=== PATIENT | female | born 1990 | race American Indian/Alaskan Native ===

== ENCOUNTER 2017-04-05 09:06 | Emergency (ER) | payer SELFPAY | END 2017-04-05 09:07 | disposition left against medical advice (07) | LOC: ED 09:06 | DX: M54.9 Dorsalgia, unspecified (principal); Z53.21 Procedure and treatment not carried out due to patient leaving prior to being seen by health care provider; V89.2XXA Person injured in unspecified motor-vehicle accident, traffic, initial encounter; Y93.89 Activity, other specified; Y99.8 Other external cause status; Y92.488 Other paved roadways as the place of occurrence of the external cause ==

== ENCOUNTER 2017-07-12 22:56 | Emergency (ER) | payer SELFPAY ==
[2017-07-13 00:06] VITALS: BP 115/70
[2017-07-13] MEDS ORDERED: DUONEB *Not for PRN Use IH ONE ×2 (00:12→00:13)
[2017-07-13 00:26] LABS: Hematocrit 39.8 % (30.3-42.9); Hemoglobin 12.9 gm/dl (10.1-14.3); Mean Corpuscular HGB Conc 32 % (30-34); Mean Corpuscular Hemoglobin 30 pg (28-32); Mean Corpuscular Volume 92 fl (79-97); Platelet Count 219 K/mm3 (140-440); Red Blood Count 4.32 M/mm3 (3.65-5.03); Red Cell Distribution Width 13.5 % (13.2-15.2)
[2017-07-13 00:40] LABS: Bilirubin,Urine NEG (Negative); Blood,Urine MOD (Negative); Color,Urine Straw (Yellow); Protein,Urine <15 mg/dL mg/dL (Negative); RBC,Urine < 1.0 /HPF (0.0-6.0); Urobilinogen,Urine < 2.0 mg/dL (<2.0)
[2017-07-13 00:44] LABS: BUN/Creatinine Ratio 10; Blood Urea Nitrogen 10 mg/dL (7-17); Calcium 8.4 mg/dL (8.4-10.2); Hemolysis Index 3
[2017-07-13] MEDS ORDERED: ZOFRAN ODT ONE (01:12)
[2017-07-13] MEDS ORDERED: ZOFRAN ODT PO ONE ×2 (01:16→05:44)
[2017-07-13] MEDS ORDERED: DELTASONE PO ONE (05:44)
--- NOTE | 2017-07-13 05:45 | Emergency Department Report ---
HPI - General Chief Complaint: Adult Asthma Time Seen by Provider: 07/13/17 05:39 - HPI HPI: Patient here reports that her asthma is acting up. She says she hasn't had an asthma flare for few years and she does have a inhaler. She says she's been having and sneezing and nasal congestion and coughing for over a week and now she is having wheezing for the last 2-3 days and feeling like something is caught in her throat. Denies any chest pain or shortness of breath. She says she is feeling a little nauseated. Patient says she thinks she might be could've the last time she saw her period was 05/08/2017 and she feels some pelvic pressure on and off. Denies any urinary burning frequency or urgency. Denies any vaginal discharge or bleeding. No previous intubation for asthma. She is also requesting a check. Denies any sore throat or drooling. Denies any headache. She is not having any pain at present but says when she was having pelvic pressure last week it was like to. She says she's been taking in medication such as Claritin, DayQuil Tylenol and Vicks. She said medications not helping. Patient denies any vomiting or any fever or chills. She denies any diarrhea. ED Past Medical Hx - Past Medical History Previous Medical History?: Yes Hx Asthma: Yes - Surgical History Past Surgical History?: Yes Additional Surgical History: Csection - Family History Family history: no significant - Social History Smoking Status: Never Smoker Substance Use Type: None - Medications Home Medications: Home Medications Medication Instructions Recorded Confirmed Last Taken Type ALBUTEROL Inhaler [ProAir HFA 2 puff IH Q4-6H PRN #1 inhalation 07/13/17 Unknown Rx Inhaler] Cetirizine HCl [ZyrTEC] 10 mg PO QAM 14 Days #14 capsule 07/13/17 Unknown Rx Fluticasone [Flonase] 1 spray NS QDAY 14 Days #1 bottle 07/13/17 Unknown Rx Ondansetron [Zofran Odt] 4 mg PO Q8H PRN #12 tab.rapdis 07/13/17 Unknown Rx Sulfamethoxazole/Trimethoprim 1 each PO Q12H 7 Days #14 tablet 07/13/17 Unknown Rx [Bactrim DS TAB] predniSONE [Deltasone] 50 mg PO QAM 5 Days #5 tablet 07/13/17 Unknown Rx ED Review of Systems ROS: Stated complaint: ASTHMA Other details as noted in HPI Comment: All other systems reviewed and negative Constitutional: no symptoms reported Eyes: denies: eye discharge ENT: congestion. denies: ear pain, throat pain, dental pain, epistaxis Respiratory: cough, wheezing. denies: orthopnea, shortness of breath, SOB with exertion, SOB at rest, stridor Cardiovascular: denies: chest pain, palpitations, dyspnea on exertion, orthopnea , edema, syncope, paroxysmal nocturnal dyspnea Gastrointestinal: nausea, other (pelvic pressure on and off). denies: abdominal pain, vomiting, diarrhea, constipation, hematemesis, melena, hematochezia Genitourinary: abnormal menses. denies: urgency, dysuria, frequency, hematuria , discharge, dyspareunia Musculoskeletal: denies: back pain, joint swelling, arthralgia, myalgia Skin: denies: rash Neurological: denies: headache, numbness, paresthesias, confusion Physical Exam - Physical Exam Vital Signs: Vital Signs 07/12/17 23:55 Temperature 98.6 F Pulse Rate 98 H Respiratory 20 Rate Blood Pressure 115/70 O2 Sat by Pulse 98 Oximetry General: This is a 27-year-old female well-nourished well-developed in no acute distress. Physical Exam: Head: Normocephalic, atraumatic, no abrasion, no bruising and no contusion. Eyes: Biateral pupils equal and reactive to light, bilateral EOM intact.. Bilateral conjunctival and sclera without injection, normal accommodation. No nystagmus Mouth: Mucosa moist, no pharyngeal exudate or erythema. No peritonsillar abscesses. Uvula is midline and oral airways patent. Ears: Bilateral TMs ingested without erythema .Bilateral EAC without any redness swelling or drainage. No mastoid bone tenderness Nose: Bilateral nasal mucosa, erythema, congested with their drainage,Maxillary and frontal sinuses non-tender to palpate. Neck: Supple, No Cervical adenopathy, full range of motion and no C-spine tenderness. No swelling or tracheal deviation normal reflexes Cardiovascular: S1, S2. Regular rate and rhythm. No murmur. Capillary refill is less then 3 seconds. Lungs: Scattered wheezes to upper lung cohen No rhonchi or rales. No chest wall tenderness. Normal work of breathing. No chest contusion. No bruising to chest. Abdomen: Non-tender to palpate in all quadrants, no guarding or rebound tenderness, positive bowel sounds in all quadrants. No CVA tenderness. No hernia, bruit or mass. No rigidity or distention. Extremities: No clubbing, cyanosis or edema. +2 pulses. No neurovascular compromise Skin: Clean, dry and intact. No rash or lesions. Psych: Normal mood and behavior ED Course Vital Signs 07/12/17 23:55 Temperature 98.6 F Pulse Rate 98 H Respiratory 20 Rate Blood Pressure 115/70 O2 Sat by Pulse 98 Oximetry - Reevaluation(s) Reevaluation #1: 07/13/17 06:07 Patient given DuoNeb 1 nebulizer treatment in emergency room. She was given Deltasone 60 mg by mouth for asthma exacerbation. Upon reevaluation her lung sounds are clear. Patient given Zofran DT 8 mg and 4 mg increments for nausea. She is able to tolerate oral liquids in the emergency room without any vomiting. She says she still feels congested in her nose but her lungs feel better. ED Medical Decision Making - Lab Data Result diagrams: 07/13/17 00:15 07/13/17 00:15 Lab Results 07/13/17 07/13/17 07/13/17 Range/Units 00:06 00:15 00:15 WBC 7.9 (4.5-11.0) K/mm3 RBC 4.32 (3.65-5.03) M/mm3 Hgb 12.9 (10.1-14.3) gm/dl Hct 39.8 (30.3-42.9) % MCV 92 (79-97) fl MCH 30 (28-32) pg MCHC 32 (30-34) % RDW 13.5 (13.2-15.2) % Plt Count 219 (140-440) K/mm3 Sodium 140 (137-145) mmol/L Potassium 4.1 (3.6-5.0) mmol/L Chloride 102.2 (98-107) mmol/L Carbon Dioxide 29 (22-30) mmol/L Anion Gap 13 mmol/L BUN 10 (7-17) mg/dL Creatinine 1.0 (0.7-1.2) mg/dL Estimated GFR > 60 ml/min BUN/Creatinine Ratio 10 % Glucose 109 H (65-100) mg/dL Calcium 8.4 (8.4-10.2) mg/dL HCG, Qual (Negative) Urine Color Straw (Yellow) Urine Turbidity Clear (Clear) Urine pH 6.0 (5.0-7.0) Ur Specific [place] 1.005 (1.003-1.030) Urine Protein <15 mg/dl (Negative) mg/dL Urine Glucose (UA) Neg (Negative) mg/dL Urine Ketones Neg (Negative) mg/dL Urine Blood Mod (Negative) Urine Nitrite Neg (Negative) Urine Bilirubin Neg (Negative) Urine Urobilinogen < 2.0 (<2.0) mg/dL Ur Leukocyte Esterase Tr (Negative) Urine WBC (Auto) 2.0 (0.0-6.0) /HPF Urine RBC (Auto) < 1.0 (0.0-6.0) /HPF U Epithel Cells (Auto) < 1.0 (0-13.0) /HPF 07/13/17 Range/Units 00:15 WBC (4.5-11.0) K/mm3 RBC (3.65-5.03) M/mm3 Hgb (10.1-14.3) gm/dl Hct (30.3-42.9) % MCV (79-97) fl MCH (28-32) pg MCHC (30-34) % RDW (13.2-15.2) % Plt Count (140-440) K/mm3 Sodium (137-145) mmol/L Potassium (3.6-5.0) mmol/L Chloride (98-107) mmol/L Carbon Dioxide (22-30) mmol/L Anion Gap mmol/L BUN (7-17) mg/dL Creatinine (0.7-1.2) mg/dL Estimated GFR ml/min BUN/Creatinine Ratio % Glucose (65-100) mg/dL Calcium (8.4-10.2) mg/dL HCG, Qual Negative (Negative) Urine Color (Yellow) Urine Turbidity (Clear) Urine pH (5.0-7.0) Ur Specific [place] (1.003-1.030) Urine Protein (Negative) mg/dL Urine Glucose (UA) (Negative) mg/dL Urine Ketones (Negative) mg/dL Urine Blood (Negative) Urine Nitrite (Negative) Urine Bilirubin (Negative) Urine Urobilinogen (<2.0) mg/dL Ur Leukocyte Esterase (Negative) Urine WBC (Auto) (0.0-6.0) /HPF Urine RBC (Auto) (0.0-6.0) /HPF U Epithel Cells (Auto) (0-13.0) /HPF Urine culture pending - Medical Decision Making Patient here reports that she is having an asthma flareup, nasal congestion and runny nose preceded this. She is also having episodic pelvic pressure that she is not having now. No urinary symptoms. She is requesting a test because she feels like she is because she is having nausea with pelvic pressure and missed her period 2 months. Patient found to have mild asthma exacerbation, intermittent, upper respiratory tract infection with cough and congestion. Lab to include CT reveals negative , CBC is stable, chemistry stable. Patient urinalysis with trace leukocyte esterase and moderate blood but all other values are normal. I discussed the patient diagnosis and treatment plan. She voiced understanding. Patient was treated in emergency room with DuoNeb 1 nebulizer treatment and Deltasone 60 mg by mouth for asthma. She says she felt better. She was given Zofran 8 mg ODT total for nausea which helped her nausea and she is able to tolerate liquids in emergency room. Patient with questionable urinary tract infection with trace leukocyte esterase and moderate amount of blood in urine but no urinary burning , urgency or frequency. I will put patient on antibiotic to treat upper respiratory infection with cough and congestion and asthma and this should cover if she has urinary tract infection. Patient discharged home in stable condition with prescription for Zofran, Bactrim DS, prednisone, Zyrtec, Flonase and albuterol. Patient to follow-up at [facility] in 2-3 days Critical care attestation.: If time is entered above; I have spent that time in minutes in the direct care of this critically ill patient, excluding procedure time. ED Disposition Clinical Impression: URI with cough and congestion, Nausea alone, Abnormal menstrual cycle Asthma exacerbation attacks Qualifiers: Asthma severity: mild Asthma persistence: intermittent Qualified Code(s): J45.21 - Mild intermittent asthma with (acute) exacerbation Disposition: TO HOME OR SELFCARE Is pt being admited?: No Does the pt Need Aspirin: No Condition: Stable Instructions: Asthma (ED), Upper Respiratory Infection (ED), Acute Cough (ED), Acute Nausea and Vomiting (ED) Additional Instructions: Please follow up with [facility] for primary care visit and also [facility] [facility] visit. Call today to schedule an appointment for management of your chronic asthma and also they have [facility] which will evaluate U for abnormal menses He states Zyrtec and Flonase for congestion Albuterol for cough and wheezing Take Bactrim DS for upper respiratory infection lasted more than 1 week. Increase your fluid intake Flushes sinuses out with saline nasal wash Prescriptions: ALBUTEROL Inhaler [ProAir HFA Inhaler] 2 puff IH Q4-6H PRN #1 inhalation PRN Reason: cough and wheeze Cetirizine HCl [ZyrTEC] 10 mg PO QAM 14 Days #14 capsule Fluticasone [Flonase] 1 spray NS QDAY 14 Days #1 bottle Ondansetron [Zofran Odt] 4 mg PO Q8H PRN #12 tab.rapdis PRN Reason: Nausea And Vomiting predniSONE [Deltasone] 50 mg PO QAM 5 Days #5 tablet Sulfamethoxazole/Trimethoprim [Bactrim DS TAB] 1 each PO Q12H 7 Days #14 tablet Referrals: [facility] [Outside] - 2-3 Days Forms: Work/School Release Form(ED)
== END 2017-07-13 06:32 | disposition home or self-care (01) ==
LOC: ED 22:56
DX: J45.21 Mild intermittent asthma with (acute) exacerbation (principal); J06.9 Acute upper respiratory infection, unspecified; N92.6 Irregular menstruation, unspecified
CPT/HCPCS: 36415; 80048; 81001; 84703; 85027; 87086; 99283; J7512; Q0162

== ENCOUNTER 2017-12-24 17:09 | Emergency (ER) | payer OTHER ==
[2017-12-24 17:33] VITALS: BP 118/54
[2017-12-24] MEDS ORDERED: MOTRIN PO ONE (18:34)
[2017-12-24] MEDS ORDERED: NORCO 5/325 PO ONE (18:34)
[2017-12-24] MEDS ORDERED: ZOFRAN ODT PO ONE (18:34)
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
== END 2017-12-24 18:53 | disposition home or self-care (01) ==
LOC: ED 17:09
DX: M25.562 Pain in left knee (principal); M25.512 Pain in left shoulder; M25.572 Pain in left ankle and joints of left foot; J45.909 Unspecified asthma, uncomplicated; F17.200 Nicotine dependence, unspecified, uncomplicated; Z88.0 Allergy status to penicillin; V49.49XA Driver injured in collision with other motor vehicles in traffic accident, initial encounter; Y93.89 Activity, other specified; Y92.488 Other paved roadways as the place of occurrence of the external cause; Y99.8 Other external cause status
CPT/HCPCS: 99282; Q0162

== ENCOUNTER 2018-09-03 07:38 | Emergency (ER) | payer MEDICAID, OTHER ==
[2018-09-03 07:47] VITALS: BP 120/63
[2018-09-03 08:30] LABS: Basophils % (Auto) 0.6 % (0.0-1.8); Eosinophils # (Auto) 0.1 K/mm3 (0.0-0.4); Eosinophils % (Auto) 1.3 % (0.0-4.3); Hematocrit 38.1 % (30.3-42.9); Hemoglobin 12.6 gm/dl (10.1-14.3); Lymphocytes # (Auto) 2.6 K/mm3 (1.2-5.4); Lymphocytes % (Auto) 34.9 % (13.4-35.0); Mean Corpuscular HGB Conc 33 % (30-34); Mean Corpuscular Volume 91 fl (79-97); Monocytes # (Auto) 0.6 K/mm3 (0.0-0.8); Monocytes % (Auto) 7.9 % (0.0-7.3); Platelet Count 235 K/mm3 (140-440); Red Blood Count 4.17 M/mm3 (3.65-5.03); Red Cell Distribution Width 13.6 % (13.2-15.2)
--- NOTE | 2018-09-03 08:34 | Emergency Department Report ---
ED Female HPI - General Chief complaint: Abdominal Pain Stated complaint: /ABD PAIN Source: patient Mode of arrival: Ambulatory Limitations: No Limitations - History of Present Illness Initial comments: This is a 28-year-old female who presents to the emergency room with diffuse abdominal cramping for a couple days. Patient states she took a home test and forth which was positive. Last menstrual period was 07/09/2018, A0. She also reports nausea without vomiting. Denies vaginal bleeding, vaginal discharge, urinary frequency, urgency, or dysuria. MD Complaint: pelvic pain Onset/Timin -: days(s) Location: suprapubic Radiation: non-radiating Severity: mild Severity scale (0 -10): 3 Quality: cramping Consistency: intermittent Improves with: none Worsens with: none Are you Now?: Yes Last Menstrual Period: 07/09/18 EDC: 04/15/19 Associated Symptoms: abdominal pain, nausea/vomiting. denies: vaginal discharge, vaginal bleeding, fever/chills, headaches, loss of appetite, dysuria, hematuria, rash, seizure, shortness of breath, syncope, weakness - Related Data Sexually active: Yes : 4 Para: 3 A: 0 Previous Rx's Medication Instructions Recorded Last Taken Type ALBUTEROL Inhaler (OR & NICU) 2 puff IH Q4-6H PRN #1 inhalation 07/13/17 Unknown Rx [ProAir HFA Inhaler] Cetirizine HCl [ZyrTEC] 10 mg PO QAM 14 Days #14 capsule 07/13/17 Unknown Rx Fluticasone [Flonase] 1 spray NS QDAY 14 Days #1 bottle 07/13/17 Unknown Rx Ondansetron [Zofran Odt] 4 mg PO Q8H PRN #12 tab.rapdis 07/13/17 Unknown Rx Sulfamethoxazole/Trimethoprim 1 each PO Q12H 7 Days #14 tablet 07/13/17 Unknown Rx [Bactrim DS TAB] predniSONE [Deltasone] 50 mg PO QAM 5 Days #5 tablet 07/13/17 Unknown Rx Cyclobenzaprine [Flexeril] 10 mg PO TID PRN #20 tablet 12/24/17 Unknown Rx Ibuprofen [Ibuprofen 800] 800 mg PO Q6H PRN #20 tablet 12/24/17 Unknown Rx 21/Iron Fu/Folic Acid 1 each PO DAILY #30 tablet 09/03/18 Unknown Rx [ Complete Caplet] Allergies Allergy/AdvReac Type Severity Reaction Status Date / Time Penicillins Allergy Anaphylaxis Verified 12/24/17 17:33 ED Review of Systems ROS: Stated complaint: /ABD PAIN Other details as noted in HPI Constitutional: denies: chills, fever Respiratory: denies: cough, shortness of breath, wheezing Cardiovascular: denies: chest pain, palpitations Gastrointestinal: abdominal pain, nausea. denies: vomiting, diarrhea Genitourinary: denies: urgency, dysuria, discharge Musculoskeletal: denies: back pain, joint swelling, arthralgia Skin: denies: rash, lesions Neurological: denies: headache, weakness, paresthesias Psychiatric: denies: anxiety, depression ED Past Medical Hx - Past Medical History Previous Medical History?: Yes Hx Asthma: Yes - Surgical History Past Surgical History?: Yes Additional Surgical History: Csection - Social History Smoking Status: Former Smoker Substance Use Type: Alcohol - Medications Home Medications: Home Medications Medication Instructions Recorded Confirmed Last Taken Type ALBUTEROL Inhaler (OR & NICU) 2 puff IH Q4-6H PRN #1 inhalation 07/13/17 Unknown Rx [ProAir HFA Inhaler] Cetirizine HCl [ZyrTEC] 10 mg PO QAM 14 Days #14 capsule 07/13/17 Unknown Rx Fluticasone [Flonase] 1 spray NS QDAY 14 Days #1 bottle 07/13/17 Unknown Rx Ondansetron [Zofran Odt] 4 mg PO Q8H PRN #12 tab.rapdis 07/13/17 Unknown Rx Sulfamethoxazole/Trimethoprim 1 each PO Q12H 7 Days #14 tablet 07/13/17 Unknown Rx [Bactrim DS TAB] predniSONE [Deltasone] 50 mg PO QAM 5 Days #5 tablet 07/13/17 Unknown Rx Cyclobenzaprine [Flexeril] 10 mg PO TID PRN #20 tablet 12/24/17 Unknown Rx Ibuprofen [Ibuprofen 800] 800 mg PO Q6H PRN #20 tablet 12/24/17 Unknown Rx 21/Iron Fu/Folic Acid 1 each PO DAILY #30 tablet 09/03/18 Unknown Rx [ Complete Caplet] ED Physical Exam - General Limitations: No Limitations General appearance: alert, in no apparent distress, obese (morbidly obese) - Respiratory Respiratory exam: Present: normal lung sounds bilaterally. Absent: respiratory distress - Cardiovascular Cardiovascular Exam: Present: regular rate, normal rhythm. Absent: systolic murmur, diastolic murmur, rubs, gallop - GI/Abdominal GI/Abdominal exam: Present: soft, normal bowel sounds. Absent: distended, tenderness, guarding, rebound, rigid - Back Exam Back exam: Absent: CVA tenderness (R), CVA tenderness (L) - Neurological Exam Neurological exam: Present: alert, oriented X3, normal gait - Psychiatric Psychiatric exam: Present: normal affect, normal mood - Skin Skin exam: Present: warm, dry, intact, normal color. Absent: rash ED Course Vital Signs 09/03/18 07:43 Temperature 98.6 F Pulse Rate 82 Respiratory 18 Rate Blood Pressure 120/63 O2 Sat by Pulse 100 Oximetry ED Medical Decision Making - Lab Data Result diagrams: 09/03/18 07:59 Lab Results 09/03/18 09/03/18 09/03/18 Range/Units 07:56 07:59 07:59 WBC 7.3 (4.5-11.0) K/mm3 RBC 4.17 (3.65-5.03) M/mm3 Hgb 12.6 (10.1-14.3) gm/dl Hct 38.1 (30.3-42.9) % MCV 91 (79-97) fl MCH 30 (28-32) pg MCHC 33 (30-34) % RDW 13.6 (13.2-15.2) % Plt Count 235 (140-440) K/mm3 Lymph % (Auto) 34.9 (13.4-35.0) % [place] % (Auto) 7.9 H (0.0-7.3) % Eos % (Auto) 1.3 (0.0-4.3) % Baso % (Auto) 0.6 (0.0-1.8) % Lymph # 2.6 (1.2-5.4) K/mm3 [place] # 0.6 (0.0-0.8) K/mm3 Eos # 0.1 (0.0-0.4) K/mm3 Baso # 0.0 (0.0-0.1) K/mm3 Seg Neutrophils % 55.3 (40.0-70.0) % Seg Neutrophils # 4.1 (1.8-7.7) K/mm3 HCG, Quant 58047 H (0-4) mIU/mL Urine Color Yellow (Yellow) Urine Turbidity Clear (Clear) Urine pH 7.0 (5.0-7.0) Ur Specific [place] 1.010 (1.003-1.030) Urine Protein <15 mg/dl (Negative) mg/dL Urine Glucose (UA) Neg (Negative) mg/dL Urine Ketones Neg (Negative) mg/dL Urine Blood Neg (Negative) Urine Nitrite Neg (Negative) Urine Bilirubin Neg (Negative) Urine Urobilinogen < 2.0 (<2.0) mg/dL Ur Leukocyte Esterase Sm (Negative) Urine WBC (Auto) 3.0 (0.0-6.0) /HPF Urine RBC (Auto) < 1.0 (0.0-6.0) /HPF U Epithel Cells (Auto) 2.0 (0-13.0) /HPF Urine Mucus Few /HPF Blood Type 09/03/18 Range/Units 07:59 WBC (4.5-11.0) K/mm3 RBC (3.65-5.03) M/mm3 Hgb (10.1-14.3) gm/dl Hct (30.3-42.9) % MCV (79-97) fl MCH (28-32) pg MCHC (30-34) % RDW (13.2-15.2) % Plt Count (140-440) K/mm3 Lymph % (Auto) (13.4-35.0) % [place] % (Auto) (0.0-7.3) % Eos % (Auto) (0.0-4.3) % Baso % (Auto) (0.0-1.8) % Lymph # (1.2-5.4) K/mm3 [place] # (0.0-0.8) K/mm3 Eos # (0.0-0.4) K/mm3 Baso # (0.0-0.1) K/mm3 Seg Neutrophils % (40.0-70.0) % Seg Neutrophils # (1.8-7.7) K/mm3 HCG, Quant (0-4) mIU/mL Urine Color (Yellow) Urine Turbidity (Clear) Urine pH (5.0-7.0) Ur Specific [place] (1.003-1.030) Urine Protein (Negative) mg/dL Urine Glucose (UA) (Negative) mg/dL Urine Ketones (Negative) mg/dL Urine Blood (Negative) Urine Nitrite (Negative) Urine Bilirubin (Negative) Urine Urobilinogen (<2.0) mg/dL Ur Leukocyte Esterase (Negative) Urine WBC (Auto) (0.0-6.0) /HPF Urine RBC (Auto) (0.0-6.0) /HPF U Epithel Cells (Auto) (0-13.0) /HPF Urine Mucus /HPF Blood Type B POSITIVE - Radiology Data Radiology results: report reviewed PROCEDURE: US OB TRANSVAGINAL TECHNIQUE: Transvaginal OB ultrasound. HISTORY: positive , unknown gestation COMPARISONS: None currently available. FINDINGS: Single intrauterine dates 6.2 weeks by crown rump length and mean sac diameter. CARY equals April 27, 2019. This is 12 days younger compared to the prior ultrasound and is discordant. Gestational sac, yolk sac, and pole identified. Intact diameter measures 18.5 mm. [place]-rump length measures 2.6 mm. No heart tones identified at the spine. Uterus: 12.2 x 7.1 x 6.7 cm. Cyst structure within the endometrial canal may represent a gestational sac. Right ovary: 4.8 x 1.8 x 3.5 cm. Within normal limits. Left Ovary: 4.0 x 1.7 x 3.6 cm. Within normal limits. Adnexa: Unremarkable. No free fluid. IMPRESSION: * Possible early . Short-term interval follow-up is recommended. * Size is discordant with LMP date. - Medical Decision Making Patient was examined by me. Vitals are normal and patient is in no acute distress. Obtained a urinalysis, CBC, hCG quant, and OB ultrasound. Quant [id number] all other labs unremarkable. Possible early . Short-term interval follow-up is recommended. Size is discordant with LMP date. Patient instructed to have follow-up with [facility] for repeat serum hCG labs. Start vitamins. Patient discharged home in stable condition. Critical care attestation.: If time is entered above; I have spent that time in minutes in the direct care of this critically ill patient, excluding procedure time. ED Disposition Clinical Impression: Abdominal cramping affecting , Threatened miscarriage in early Disposition: DC-01 TO HOME OR SELFCARE Is pt being admited?: No Does the pt Need Aspirin: No Condition: Stable Instructions: Abdominal Pain (ED), Threatened Miscarriage (ED) Additional Instructions: Have repeat hCG quant labs in 48-72 hours with [facility]. Heel were hCG quantitative on this visit was [id number]. Remain on bed rest. Follow up with [facility] in 24-48 hours. Return to ER if increased vaginal bleeding, abdominal pain, and low back pain. Prescriptions: 21/Iron Fu/Folic Acid [ Complete Caplet] 1 each PO DAILY #30 tablet Ref[facility]: [facility] RACHEL [Primary Care Provider] - 3-5 Days [facility] [Provider Group] - 3-5 Days [facility] [Provider Group] - 3-5 Days [facility] [Provider Group] - 3-5 Days Time of Disposition: 11:36
[2018-09-03 08:58] LABS: Bilirubin,Urine NEG (Negative); Blood,Urine NEG (Negative); Color,Urine Yellow (Yellow); Mucus,Urine FEW /HPF; Protein,Urine <15 mg/dL mg/dL (Negative); RBC,Urine < 1.0 /HPF (0.0-6.0); Urobilinogen,Urine < 2.0 mg/dL (<2.0)
--- NOTE | 2018-09-03 11:09 | Ultrasound Report ---
PROCEDURE: US OB <= 14 WEEKS FETUS TECHNIQUE: Transabdominal OB ultrasound. HISTORY: positive , unknown gestation COMPARISONS: None currently available. FINDINGS: Single intrauterine dates 6.2 weeks by crown rump length and mean sac diameter. CARY equals April 27, 2019. This is 12 days younger compared to the prior ultrasound and is discordant. Gestational sac, yolk sac, and pole identified. Intact diameter measures 18.5 mm. [place]-rump length measures 2.6 mm. No heart tones identified at the spine. Uterus: 12.2 x 7.1 x 6.7 cm. Cyst structure within the endometrial canal may represent a gestational sac. Right ovary: 4.8 x 1.8 x 3.5 cm. Within normal limits. Left Ovary: 4.0 x 1.7 x 3.6 cm. Within normal limits. Adnexa: Unremarkable. No free fluid. IMPRESSION: * Possible early . Short-term interval follow-up is recommended. * Size is discordant with LMP date. * Elias level II reporting initiated. This document is electronically signed by Delmar Potts MD., September 03 2018 11:07:07 AM ET
--- NOTE | 2018-09-03 11:21 | Ultrasound Report ---
PROCEDURE: US OB TRANSVAGINAL TECHNIQUE: Transvaginal OB ultrasound. HISTORY: positive , unknown gestation COMPARISONS: None currently available. FINDINGS: Single intrauterine dates 6.2 weeks by crown rump length and mean sac diameter. CARY equals April 27, 2019. This is 12 days younger compared to the prior ultrasound and is discordant. Gestational sac, yolk sac, and pole identified. Intact diameter measures 18.5 mm. [place]-rump length measures 2.6 mm. No heart tones identified at the spine. Uterus: 12.2 x 7.1 x 6.7 cm. Cyst structure within the endometrial canal may represent a gestational sac. Right ovary: 4.8 x 1.8 x 3.5 cm. Within normal limits. Left Ovary: 4.0 x 1.7 x 3.6 cm. Within normal limits. Adnexa: Unremarkable. No free fluid. IMPRESSION: * Possible early . Short-term interval follow-up is recommended. * Size is discordant with LMP date. * Elias level II reporting initiated. * 09/03/2018 at 0810 PT: Judy Mendoza, [facility], discussed the findi ngs over the phone with MIRNA Pack. This document is electronically signed by Delmar Potts MD., September 03 2018 11:19:26 AM ET
== END 2018-09-03 12:00 | disposition home or self-care (01) ==
LOC: ED 07:38
DX: O20.0 Threatened abortion (principal); O99.511 Diseases of the respiratory system complicating pregnancy, first trimester; J45.909 Unspecified asthma, uncomplicated; Z87.891 Personal history of nicotine dependence; Z88.0 Allergy status to penicillin; Z3A.01 Less than 8 weeks gestation of pregnancy
CPT/HCPCS: 36415; 76801; 76817; 81001; 84702; 85025; 86900; 86901

== ENCOUNTER 2021-04-06 22:50 | Emergency (ER) | payer MEDICAID, OTHER ==
[2021-04-06] MEDS ORDERED: SODIUM CHLORIDE 0.9% 1000 ML 1,000 ML IV ONE (23:11)
[2021-04-06] MEDS ORDERED: KETOROLAC 30 MG/1 ML INJ IV ONE (23:11)
[2021-04-06] MEDS ORDERED: fentaNYL 100 MCG/2 ML INJ IV ONE (23:11)
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
[2021-04-06 23:52] LABS: Basophils # (Auto) 0.1 K/mm3 (0.0-0.1); Basophils % (Auto) 0.9 % (0.0-1.8); Eosinophils # (Auto) 0.1 K/mm3 (0.0-0.4); Eosinophils % (Auto) 1.2 % (0.0-4.3); Hematocrit 38.3 % (30.3-42.9); Hemoglobin 12.3 gm/dl (10.1-14.3); Lymphocytes # (Auto) 2.5 K/mm3 (1.2-5.4); Lymphocytes % (Auto) 32.5 % (13.4-35.0); Mean Corpuscular HGB Conc 32 % (30-34); Mean Corpuscular Volume 95 fl (79-97); Monocytes # (Auto) 0.5 K/mm3 (0.0-0.8); Monocytes % (Auto) 5.9 % (0.0-7.3); Platelet Count 226 K/mm3 (140-440); Red Blood Count 4.04 M/mm3 (3.65-5.03); Red Cell Distribution Width 13.6 % (13.2-15.2)
[2021-04-06 23:58] LABS: Alanine Aminotransferase 14 units/L (7-56); Albumin 3.6 g/dL (3.9-5); BUN/Creatinine Ratio 19; Blood Urea Nitrogen 15 mg/dL (7-17); Calcium 8.1 mg/dL (8.4-10.2); Hemolysis Index 6
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
[2021-04-07 10:51] VITALS: BP 134/85
[2021-04-07] MEDS ORDERED: HYDROcodone/ACETAMINOPHEN 5-325 MG TAB PO ONE (11:15)
== END 2021-04-07 11:15 | disposition home or self-care (01) ==
LOC: ED 22:50
DX: S16.1XXA Strain of muscle, fascia and tendon at neck level, initial encounter (principal); S96.912A Strain of unspecified muscle and tendon at ankle and foot level, left foot, initial encounter; S50.12XA Contusion of left forearm, initial encounter; S30.1XXA Contusion of abdominal wall, initial encounter; V89.2XXA Person injured in unspecified motor-vehicle accident, traffic, initial encounter; Y93.89 Activity, other specified; Y92.89 Other specified places as the place of occurrence of the external cause; Y99.8 Other external cause status
CPT/HCPCS: 36415; 70450; 71260; 72125; 73090; 73630; 74177; 80053; 84703; 85025; 99284; Q9967; 80320; G0480